=== PATIENT | male | born 1995 | race Hispanic/Latino ===

== ENCOUNTER 2018-02-10 03:03 | Emergency (ER) | payer OTHER, SELFPAY ==
[2018-02-10 03:42] LABS: Absolute Lymphocytes (CBC) 1.6 K/uL (0.7-4.9); Absolute Monocytes 0.7 K/uL (0.1-1.3); Absolute Neutrophil 5.1 K/uL (1.8-8.0); Basophils % 1.1 % (0-1.3); Eosinophils % 1.9 % (0-4.4); Hematocrit 44.1 % (39.6-49.0); Lymphocytes % 20.7 % (15.3-44.8); MCH 30.8 pg (27.0-35.0); MCV 88.9 fL (80-100); Monocytes % 8.7 % (3.3-12.3); RBC Red Blood Cell Count 4.96 M/uL (4.33-5.43)
[2018-02-10 03:49] LABS: BUN Blood Urea Nitrogen 15 mg/dL (7-18); Bicarbonate 27 mmol/L (21-32); Glucose Level 107 mg/dL (74-106); Potassium 3.7 mmol/L (3.5-5.1); Sodium Level 142 mmol/L (136-145)
[2018-02-10] MEDS ORDERED: KETOROLAC 30 MG/ML INJ ONE (05:58)
[2018-02-10] MEDS ORDERED: ONDANSETRON 4 MG/2 ML VIAL ONE (05:58)
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
== END 2018-02-10 06:12 | disposition home or self-care (01) ==
LOC: ER 03:03
DX: M25.511 Pain in right shoulder (principal); F10.129 Alcohol abuse with intoxication, unspecified; V89.2XXA Person injured in unspecified motor-vehicle accident, traffic, initial encounter
CPT/HCPCS: 36415; 70450; 71260; 72125; 74177; 80048; 80320; 85025; 86850; 86900; 86901; 96374; 96375; 99285; J2405; Q9967